=== PATIENT | female | born 1960 | race Caucasian/White ===

== ENCOUNTER 2017-05-24 14:15 | Emergency (ER) | payer MEDICARE, OTHER ==
[2017-05-24 14:27] VITALS: TEMP 98.1; O2SAT 98
--- NOTE | 2017-05-24 15:21 | ED PDOC ---
HPI: Abdomen Time Seen by Provider: 05/24/17 14:20 Chief Complaint (Nursing): Abdominal Pain Chief Complaint (Provider): Abdominal pain History Per: Patient History/Exam Limitations: no limitations Onset/Duration Of Symptoms: Days Outside of [place] travel?: No Current Symptoms Are (Timing): Still Present Location Of Pain/Discomfort: Epigastric Quality Of Discomfort: Burning, "Pain" Associated Symptoms: Nausea, Vomiting, Chest Pain Additional History Per: Patient Additional Complaint(s): 56yo female with past medical history of fibromyalgia, anxiety, migraine headaches, hypertension, presents to the ED for evaluation of epigastric abdominal pain, described as burning sensation, present since the past 2 days. Patient states she went out for dinner 3 days ago and had sauteed onions as well as alcohol, which she believes might have triggered her symptoms. She reports associated reflux, dizziness, nausea and chest discomfort. Patient also has a secondary complaint of right ear and jaw pain. She reports taking Percocets (prescribed by her pain management doctor for fibromyalgia) with no relief of her pain; patient also states she took some zofran without relief of her nausea. She offers no other complaints. Abnormal Vaginal Bleeding: No Past Medical History Reviewed: Historical Data, Nursing Documentation, Vital Signs Vital Signs: Last Vital Signs Temp 98.1 F 05/24/17 14:24 Pulse 87 05/24/17 17:06 Resp 17 05/24/17 17:06 BP 168/85 H 05/24/17 17:06 Pulse Ox 98 05/25/17 08:23 - Medical History PMH: Anxiety, Asthma, Fibromyalgia, HTN, Chronic Pain - Surgical History Surgical History: No Surg Hx - Family History Family History: States: No Known Family Hx, Unknown Family Hx - Immunization History Hx Tetanus Toxoid Vaccination: No Hx Influenza Vaccination: No Hx Pneumococcal Vaccination: No - Home Medications Home Medications: Ambulatory Orders Medication Instructions Recorded Famotidine [Pepcid] 20 mg PO BID PRN #10 tab 05/24/17 - Allergies Allergies/Adverse Reactions: Allergies Allergy/AdvReac Type Severity Reaction Status Date / Time No Known Allergies Allergy Verified 11/19/15 14:11 Review of Systems ROS Statement: Except As Marked, All Systems Reviewed And Found Negative ENT: Positive for: Ear Pain (right) Cardiovascular: Positive for: Chest Pain Gastrointestinal: Positive for: Nausea, Vomiting, Abdominal Pain Physical Exam - Reviewed Nursing Documentation Reviewed: Yes Vital Signs Reviewed: Yes - Physical Exam Appears: Positive for: Non-toxic Head Exam: Positive for: ATRAUMATIC Skin: Positive for: Normal Color Eye Exam: Positive for: Normal appearance ENT: Positive for: TM Is/Are (blocked due to wax; no signs of infection) Neck: Positive for: Supple Cardiovascular/Chest: Positive for: Regular Rate, Rhythm Respiratory: Positive for: Normal Breath Sounds. Negative for: Respiratory Distress Gastrointestinal/Abdominal: Positive for: Soft, Tenderness (epigastric tenderness. no RUq or RULQ tenderness) Back: Positive for: Normal Inspection Extremity: Positive for: Normal ROM. Negative for: Deformity, Swelling Neurologic/Psych: Positive for: Alert, Oriented - Laboratory Results Result Diagrams: 05/24/17 15:59 05/24/17 15:59 - ECG O2 Sat by Pulse Oximetry: 98 (RA) Pulse Ox Interpretation: Normal Medical Decision Making Medical Decision Making: Time: 153 Impression: Gastritis, fibromyalgia exacerbation Plan: -- Labs -- Pepcid 20 mg IVP -- Zofran 4mg IV -- IV Fluids Reassess Time: 1623 Labs reviewed and within normal limits. pt tolerating po. Patient stable for discharge home. Scribe Attestation: Documented by Daysi Logan acting as a scribe for Darien Mcintosh MD. Provider Attestation: All medical record entries made by the Scribe were at my direction and personally dictated by me. I have reviewed the chart and agree that the record accurately reflects my personal performance of the history, physical exam, medical decision making, and the department course for this patient. I have also personally directed, reviewed, and agree with the discharge instructions and disposition. Disposition - Clinical Impression Clinical Impression: Gastritis - Patient ED Disposition Is Patient to be Admitted: No Counseled Patient/Family Regarding: Studies Performed, Diagnosis, Need For Followup - Disposition Referrals: [facility] [Outside] [facility] [Outside] Disposition: Routine/Home Disposition Time: 16:00 Condition: IMPROVED Additional Instructions: follow up with your primary doctor in 1-2 days return to the ED with any worsening or concerning symptoms Prescriptions: Famotidine [Pepcid] 20 mg PO BID PRN #10 tab PRN Reason: Heartburn Instructions: Gastritis (ED) Forms: [employer] (Luxembourgish)
[2017-05-24] MEDS ORDERED: Sodium Chloride 0.9% 1,000 ML IV STA (15:34)
[2017-05-24 16:06] LABS: BASO % 0.5 % (0.0-2.0); EOS # 0.3 K/uL (0.0-0.7); EOS % 3.2 % (0.0-4.0); HEMATOCRIT 40.3 % (34.0-47.0); LYMPH # 2.4 K/uL (1.0-4.3); MEAN CELL VOLUME 90.1 fl (81.0-99.0); MEAN CORPUSCULAR HEMOGLOBIN 29.4 pg (27.0-31.0); MEAN CORPUSCULAR HGB CONC 32.6 g/dL (33.0-37.0); MEAN PLATELET VOLUME 8.6 fl (7.2-11.7); MONO # 0.5 K/uL (0.0-0.8); MONO % 5.6 % (0.0-10.0); NEUT # 6.4 K/uL (1.8-7.0); NEUT % 65.7 % (50.0-75.0); NRBC % 0.1 % (0.0-0.0); RED CELL DISTRIBUTION WIDTH 14.2 % (11.5-14.5); WHITE BLOOD COUNT 9.8 K/uL (4.8-10.8)
[2017-05-24 16:13] LABS: ALB/GLOB RATIO 1.3 (1.0-2.1); ALKALINE PHOSPHATASE 100 U/L (38-126); ALT/SGPT 27 U/L (9-52); AST/SGOT 36 U/L (14-36); BILIRUBIN,TOTAL 0.5 mg/dl (0.2-1.3); BLOOD UREA NITROGEN 13 mg/dl (7-17); CALCIUM 10.3 mg/dL (8.4-10.2); CARBON DIOXIDE 25 mmol/L (22-30); CHLORIDE 107 mmol/L (98-107); GFR AFRICAN-AMERICAN > 60; GLUCOSE,RANDOM 110 mg/dL (65-105); LIPASE 108 U/L (23-300); SODIUM 143 mmol/l (132-148); TOTAL PROTEIN 7.9 G/DL (6.3-8.2)
[2017-05-24 16:15] LABS: POTASSIUM 3.9 MMOL/L (3.6-5.0)
[2017-05-24 17:07] VITALS: BP 168/85; PULSE 87; RESP 17
== END 2017-05-24 17:07 | disposition home or self-care (01) ==
LOC: H.ER 14:15
DX: K29.70 Gastritis, unspecified, without bleeding (principal); F41.9 Anxiety disorder, unspecified; G89.29 Other chronic pain; I10 Essential (primary) hypertension; J45.909 Unspecified asthma, uncomplicated; M79.7 Fibromyalgia
CPT/HCPCS: 80053; 83690; 85025; 96374; 99283; J2405; J7040

== ENCOUNTER 2017-06-23 12:23 | Emergency (ER) | payer MEDICARE, OTHER ==
[2017-06-23 12:29] VITALS: BP 163/94; PULSE 98; RESP 18; TEMP 97.8; O2SAT 98
[2017-06-23] MEDS ORDERED: Oxycodone/Acetaminophen 5/325 mg Tab PO STA (12:44)
--- NOTE | 2017-06-23 12:46 | ED PDOC ---
Upper Extremity Pain/Injury Time Seen by Provider: 06/23/17 12:23 Chief Complaint (Nursing): Upper Extremity Problem/Injury Chief Complaint (Provider): Upper Extremity Problem/Injury History Per: Patient History/Exam Limitations: no limitations Onset/Duration Of Symptoms: Days (x1) Current Symptoms Are (Timing): Still Present Additional Complaint(s): 56 year old female, right-hand dominant with previous medical history of fibromyalgia, who presents to the emergency department with a complaint of left hand and right knee injury associated with swelling status post tripping on a curb and catching herself on left palm around 0100 earlier today. She reported taking Percocet for pain relief, last dose at 0800 today. PMD: Severiano Norman MD Past Medical History Reviewed: Historical Data, Nursing Documentation, Vital Signs Vital Signs: Last Vital Signs Temp 97.8 F 06/23/17 12:26 Pulse 98 H 06/23/17 12:26 Resp 18 06/23/17 12:26 BP 163/94 H 06/23/17 12:26 Pulse Ox 98 06/23/17 12:26 - Medical History PMH: Anxiety, Asthma, Fibromyalgia, HTN, Chronic Pain - Surgical History Surgical History: Endoscopy - Family History Family History: States: Unknown Family Hx - Social History Current smoker - smoking cessation education provided: Yes Alcohol: None Drugs: Denies - Immunization History Hx Tetanus Toxoid Vaccination: No Hx Influenza Vaccination: No Hx Pneumococcal Vaccination: No - Home Medications Home Medications: Ambulatory Orders Medication Instructions Recorded Famotidine [Pepcid] 20 mg PO BID PRN #10 tab 05/24/17 Dicyclomine [Bentyl] 20 mg PO QID PRN #10 tab 06/03/17 Ibuprofen [Motrin] 600 mg PO Q6 #20 tab 06/23/17 - Allergies Allergies/Adverse Reactions: Allergies Allergy/AdvReac Type Severity Reaction Status Date / Time acetaminophen [From Vicodin] AdvReac RASH Verified 06/23/17 12:26 ciprofloxacin [From Cipro] AdvReac NAUSEA Verified 06/03/17 16:58 hydrocodone [From Vicodin] AdvReac RASH Verified 06/23/17 12:26 Review of Systems ROS Statement: Except As Marked, All Systems Reviewed And Found Negative Musculoskeletal: Positive for: Hand Pain (left-sided with swelling), Leg Pain ( right knee) Physical Exam - Reviewed Nursing Documentation Reviewed: Yes Vital Signs Reviewed: Yes - Physical Exam Appears: Positive for: Well, Non-toxic, No Acute Distress Head Exam: Positive for: ATRAUMATIC, NORMAL INSPECTION, NORMOCEPHALIC Cardiovascular/Chest: Positive for: Regular Rate, Rhythm, Chest Non Tender Respiratory: Positive for: Normal Breath Sounds. Negative for: Decreased Breath Sounds, Respiratory Distress Extremity: Positive for: Normal ROM (of digits), Tenderness (left 3rd-5th metacarpals), Swelling (and echhymosis to 3rd-5th metacarpals). Negative for: Deformity Neurologic/Psych: Positive for: Alert (x3), Oriented - ECG O2 Sat by Pulse Oximetry: 98 (RA) Pulse Ox Interpretation: Normal Medical Decision Making Medical Decision Making: Initial Impression: Left hand and right knee injury status post fall Initial Plan: * Xray knee (right) * Percocet 5/325mg PO * Xray hand (left) Time: 1331 --Xray hand (left) FINDINGS: BONES: No fracture. JOINTS: First carpal metacarpal osseous hypertrophic arthrosis. Proximal and distal 2nd through 5th interphalangeal joint space narrowing. First inter phalangeal joint space narrowing. First carpal metacarpal and 1st metacarpal - phalangeal joint space narrowing. SOFT TISSUES: Soft tissue swelling more pronounced over the dorsal lateral aspect of the 5th metacarpal OTHER FINDINGS: None. IMPRESSION: No fracture or dislocation. Soft tissue swelling Degenerative changes - 1st carpal metacarpal joint most notably affected Placed in metacarpal splint. RICE therapy advised Scribe Attestation: Documented by Swetha Womack, acting as a scribe for Yenny Salas Provider Scribe Attestation: All medical record entries made by the Scribe were at my direction and personally dictated by me. I have reviewed the chart and agree that the record accurately reflects my personal performance of the history, physical exam, medical decision making, and the department course for this patient. I have also personally directed, reviewed, and agree with the discharge instructions and disposition. Disposition - Clinical Impression Clinical Impression: Hand contusion, Knee contusion - Patient ED Disposition Is Patient to be Admitted: No - Disposition Disposition: Routine/Home Disposition Time: 13:57 Condition: STABLE Prescriptions: Ibuprofen [Motrin] 600 mg PO Q6 #20 tab Instructions: Contusion in Adults (ED) Forms: [facility] (Greenlandic) - POA Present On Arrival: None
[2017-06-23] MEDS ORDERED: Oxycodone/Acetaminophen 5/325 mg Tab ONE (12:49)
--- NOTE | 2017-06-23 13:33 | RAD ---
PROCEDURE: Left Hand Radiographs. HISTORY: pain s/p fall COMPARISON: None. FINDINGS: BONES: No fracture. JOINTS: First carpal metacarpal osseous hypertrophic arthrosis. Proximal and distal 2nd through 5th interphalangeal joint space narrowing. First inter phalangeal joint space narrowing. First carpal metacarpal and 1st metacarpal - phalangeal joint space narrowing. SOFT TISSUES: Soft tissue swelling more pronounced over the dorsal lateral aspect of the 5th metacarpal OTHER FINDINGS: None. IMPRESSION: No fracture or dislocation. Soft tissue swelling Degenerative changes - 1st carpal metacarpal joint most notably affected
--- NOTE | 2017-06-23 14:05 | RAD ---
PROCEDURE: Right Knee Radiographs. HISTORY: pain s/p fall COMPARISON: None. FINDINGS: BONES: Medial tibial spine spurring. No fracture. JOINTS: Minimal osteoarthritis. Trace lateral patellar tilt JOINT EFFUSION: None. OTHER FINDINGS: None. IMPRESSION: No fracture or dislocation. Minimal osteoarthrosis. Minimal lateral patellar tilt.
== END 2017-06-23 14:26 | disposition home or self-care (01) ==
LOC: H.ER 12:23
DX: S80.01XA Contusion of right knee, initial encounter (principal); S60.222A Contusion of left hand, initial encounter; W19.XXXA Unspecified fall, initial encounter; Y92.89 Other specified places as the place of occurrence of the external cause; M79.7 Fibromyalgia; F41.9 Anxiety disorder, unspecified; I10 Essential (primary) hypertension; J45.909 Unspecified asthma, uncomplicated

== ENCOUNTER 2018-05-04 06:37 | Emergency (ER) | payer MEDICARE, OTHER ==
[2018-05-04 06:50] VITALS: RESP 18; TEMP 97.9
[2018-05-04] MEDS ORDERED: Albuterol 0.083% Inhal Sol (2.5 mg/3 mL) UD INH ONE (07:27)
[2018-05-04] MEDS ORDERED: Oxycodone/Acetaminophen 5/325 mg Tab PO ONE (07:27)
--- NOTE | 2018-05-04 07:32 | ED PDOC ---
HPI: General Adult Time Seen by Provider: 05/04/18 07:10 Chief Complaint (Nursing): Flu-like Symptoms Chief Complaint (Provider): Cough History Per: Patient History/Exam Limitations: no limitations Onset/Duration Of Symptoms: Days (x10) Additional Complaint(s): Patient is a 57 y/o female with history of anxiety and fibromyalgia who presents to the ED complaining of cough for the past x10 days. Patient states that last day she was seen by her PMD, Dr. Amezcua, and was given z-pack but today she still has a dry cough prompting ED visit. Patient denies fever, vomiting, or diarrhea. Has no other medical complaints. Patient reports that she has whole body aches that are consistent with her fibromyalgia. Past Medical History Reviewed: Historical Data, Nursing Documentation, Vital Signs Vital Signs: Last Vital Signs Temp 97.9 F 05/04/18 06:46 Pulse 81 05/04/18 06:46 Resp 18 05/04/18 06:46 BP 183/98 H 05/04/18 06:46 Pulse Ox 95 05/04/18 06:46 - Medical History PMH: Anxiety, Asthma, Fibromyalgia, HTN, Chronic Pain - Surgical History Surgical History: Endoscopy, Tonsillectomy - Family History Family History: States: Unknown Family Hx - Social History Current smoker - smoking cessation education provided: Yes (third of a pack per day for 25 years) Alcohol: None Drugs: Denies - Immunization History Hx Tetanus Toxoid Vaccination: No Hx Influenza Vaccination: No Hx Pneumococcal Vaccination: No - Home Medications Home Medications: Ambulatory Orders Medication Instructions Recorded Famotidine [Pepcid] 20 mg PO BID PRN #10 tab 05/24/17 Dicyclomine [Bentyl] 20 mg PO QID PRN #10 tab 06/03/17 Ibuprofen [Motrin] 600 mg PO Q6 #20 tab 06/23/17 - Allergies Allergies/Adverse Reactions: Allergies Allergy/AdvReac Type Severity Reaction Status Date / Time acetaminophen [From Vicodin] AdvReac RASH Verified 06/23/17 12:26 ciprofloxacin [From Cipro] AdvReac NAUSEA Verified 06/03/17 16:58 hydrocodone [From Vicodin] AdvReac RASH Verified 06/23/17 12:26 Review of Systems ROS Statement: Except As Marked, All Systems Reviewed And Found Negative Constitutional: Positive for: Malaise (body aches). Negative for: Fever Respiratory: Positive for: Cough Gastrointestinal: Negative for: Vomiting, Diarrhea Physical Exam - Reviewed Nursing Documentation Reviewed: Yes Vital Signs Reviewed: Yes - Physical Exam Appears: Positive for: Non-toxic, No Acute Distress Head Exam: Positive for: ATRAUMATIC, NORMOCEPHALIC Skin: Positive for: Normal Color, Warm, DRY Eye Exam: Positive for: EOMI, Normal appearance, PERRL ENT: Positive for: Normal ENT Inspection Neck: Positive for: Normal, Painless ROM, Supple Cardiovascular/Chest: Positive for: Regular Rate, Rhythm. Negative for: Murmur Respiratory: Positive for: Normal Breath Sounds. Negative for: Respiratory Distress Gastrointestinal/Abdominal: Positive for: Normal Exam, Soft. Negative for: Tenderness Back: Positive for: Normal Inspection. Negative for: L CVA Tenderness, R CVA Tenderness Extremity: Positive for: Normal ROM. Negative for: Pedal Edema, Deformity Neurologic/Psych: Positive for: Alert, Oriented. Negative for: Motor/Sensory Deficits - Laboratory Results Result Diagrams: 05/04/18 07:40 05/04/18 07:40 - ECG O2 Sat by Pulse Oximetry: 95 (RA) Pulse Ox Interpretation: Normal Medical Decision Making Medical Decision Making: Time: 07:27 Initial Impression: cough, whole body pain r/o pneumonia Initial Plan: --CMP --CBC w/ diff --CXR 2 views --Albuterol --Percocet pt specifically requesting percocet as that is what she takes at home for fibromylgia Time: 09:45 --Patient feels better. she is texting on phone. airway intact, in no distress. Labs were reviewed and patient is aware of elevated LFTs (told her not to take too much tylenol). Will follow up with Dr. Amezcua, MARISA. Scribe Attestation: Documented by Pritesh Oliveros acting as a scribe for Darien Mcintosh MD Provider Scribe Attestation: All medical record entries made by the Scribe were at my direction and personally dictated by me. I have reviewed the chart and agree that the record accurately reflects my personal performance of the history, physical exam, medical decision making, and the department course for this patient. I have also personally directed, reviewed, and agree with the discharge instructions and disposition. Disposition - Clinical Impression Clinical Impression: Whole body pain - Patient ED Disposition Is Patient to be Admitted: No Counseled Patient/Family Regarding: Studies Performed, Diagnosis, Need For Followup - Disposition Disposition: Routine/Home Disposition Time: 09:45 Condition: IMPROVED Additional Instructions: FOLLOW UP WITH DR AMEZCUA 2 DAYS YOUR LIVER TESTS ARE ELEVATED PLEASE FOLLOW UP WITH DR AMEZCUA RETURN TO THE ED WITH ANY WORSENING OR CONCERNING SYMPTOMS Instructions: Acute Pain, Adult (DC) Forms: [facility] (Swedish)
[2018-05-04] MEDS ORDERED: Albuterol 0.083% Inhal Sol (2.5 mg/3 mL) UD ONE (07:43)
[2018-05-04] MEDS ORDERED: Oxycodone/Acetaminophen 5/325 mg Tab ONE (07:44)
[2018-05-04 07:57] LABS: ALB/GLOB RATIO 1.1 (1.0-2.1); ALBUMIN 4.3 g/dL (3.5-5.0); ALT/SGPT 83 U/L (9-52); AST/SGOT 72 U/L (14-36); BLOOD UREA NITROGEN 30 mg/dl (7-17); CALCIUM 10.2 mg/dL (8.4-10.2); GFR NON-AFRICAN AMERICAN > 60
[2018-05-04 08:04] LABS: BASO # 0.1 K/uL (0.0-0.2); BASO % 0.8 % (0.0-2.0); EOS % 8.6 % (0.0-4.0); HEMOGLOBIN 13.2 g/dL (12.0-16.0); LYMPH # 3.7 K/uL (1.0-4.3); LYMPH % 31.2 % (20.0-40.0); MEAN CELL VOLUME 87.9 fl (81.0-99.0); MEAN CORPUSCULAR HEMOGLOBIN 29.3 pg (27.0-31.0); MEAN CORPUSCULAR HGB CONC 33.3 g/dL (33.0-37.0); MEAN PLATELET VOLUME 7.9 fl (7.2-11.7); MONO # 0.8 K/uL (0.0-0.8); MONO % 6.4 % (0.0-10.0); NEUT # 6.3 K/uL (1.8-7.0); RBC 4.5 Mil/uL (3.80-5.20); RED CELL DISTRIBUTION WIDTH 14.4 % (11.5-14.5); WHITE BLOOD COUNT 11.9 K/uL (4.8-10.8)
--- NOTE | 2018-05-04 08:21 | RAD ---
Date of service: 05/04/2018 HISTORY: cough COMPARISON: 07/21/2016 TECHNIQUE: Chest PA and lateral FINDINGS: LUNGS: No active pulmonary disease. PLEURA: No significant pleural effusion identified. No pneumothorax apparent. CARDIOVASCULAR: Normal. OSSEOUS STRUCTURES: No significant abnormalities. VISUALIZED UPPER ABDOMEN: Normal. OTHER FINDINGS: None. IMPRESSION: No active disease. Specifically no pulmonary infiltrate appreciated No interval pathology noted
[2018-05-04 10:04] VITALS: BP 146/82; PULSE 78
[2018-05-04 10:25] VITALS: O2SAT 95
== END 2018-05-04 10:38 | disposition home or self-care (01) ==
LOC: H.ER 06:37
DX: M79.10 Myalgia, unspecified site (principal); F41.9 Anxiety disorder, unspecified; M79.7 Fibromyalgia; R94.5 Abnormal results of liver function studies; G89.29 Other chronic pain; I10 Essential (primary) hypertension